=== PATIENT | male | born 1990 | race Hispanic/Latino ===

== ENCOUNTER 2018-10-07 08:28 | Inpatient (IN) | payer OTHER ==
[~2018-10-07] VITALS: Ht 162.6 cm; Wt 95.3 kg
[2018-10-07] MEDS ORDERED: PANTOPRAZOLE 40 MG 10ML VIAL IV NR (09:04)
[2018-10-07] MEDS ORDERED: SODIUM CHLORIDE 0.9% 1000ML 1,000 ML IV STA ×2 (09:04→12:18)
[2018-10-07] MEDS ORDERED: ONDANSETRON HCL INJ 2MG/ML 2ML 2 MG/ML VIAL IV NR (09:04)
[2018-10-07] MEDS ORDERED: MORPHINE SULFATE INJ 4 MG/ML INJ 1ML IV NR (09:15)
[2018-10-07 10:00] LABS: INR 0.84
[2018-10-07 10:01] LABS: PARTIAL THROMBOPLASTIN TIME 31.9 seconds (23.8-35.5)
--- NOTE | 2018-10-07 10:48 | Diagnostic Imaging Report ---
EXAMINATION: CHEST 2 VIEWS INDICATION: Epigastric pain ^ABD/CHEST PAIN ^20181007 ^1015 COMPARISON: None FINDINGS: PA and lateral views TUBES and LINES: None. LUNGS: Low lung volumes. There is no evidence of pneumonia or pulmonary edema. PLEURA: No pleural effusion or pneumothorax. HEART AND MEDIASTINUM: The cardiomediastinal silhouette is unremarkable.. BONES AND SOFT TISSUES: No focal osseous lesions. Soft tissues are unremarkable. UPPER ABDOMEN: No free air under the diaphragm. IMPRESSION: No acute thoracic abnormality. Signed by: Dr. Milla Montes MD on 10/07/2018 10:45 AM
[2018-10-07 10:58] LABS: CLARITY,URINE CLEAR (CLEAR); COLOR,URINE YELLOW (YELLOW); LEUKOCYTE ESTERASE ,URINE NEGATIVE (NEGATIVE); NITRITE,URINE NEGATIVE (NEGATIVE); PROTEIN,URINE DIPSTICK 3+ (NEGATIVE)
[2018-10-07 10:59] LABS: BILIRUBIN,URINE NEGATIVE (NEGATIVE); KETONES,URINE 3+ (NEGATIVE); URINE UROBILINOGEN 0.2 mg/dL (0.2 - 1)
[2018-10-07 11:10] LABS: ALBUMIN 4.2 g/dL (3.5-5.0); ALBUMIN/GLOBULIN RATIO 0.4 (0.8-2.0); ANION GAP 22.6 mmol/L (8-16); CALCIUM 9.8 mg/dL (8.4-10.2); CARBON DIOXIDE 17 mmol/L (22-29); CHLORIDE 89 mmol/L (98-107); POTASSIUM 3.6 mmol/L (3.5-5.1); SODIUM 125 mmol/L (136-145)
[2018-10-07 11:12] LABS: GLUCOSE 377 mg/dL (74-118)
[2018-10-07 11:16] LABS: RBC,URINE 21-50 /HPF (0-5)
[2018-10-07 11:21] LABS: HYALINE CASTS 0-1 (0-1); WBC,URINE (MAN) 0-5 /HPF (0-5)
[2018-10-07 11:25] LABS: BLOOD UREA NITROGEN 11 mg/dL (7-26); BUN/CREATININE RATIO 10 (6-25); CREATININE, SERUM 1.11 mg/dL (0.72-1.25); EST GLOMERULAR FILTRATION RATE > 60 ML/MIN (60-)
[2018-10-07 11:37] LABS: AMYLASE 253 U/L (25-125); LIPASE 633 U/L (8-78)
--- NOTE | 2018-10-07 11:40 | NUR ---
VERBAL REPORT GIVEN TO LINH CARROLL.
--- NOTE | 2018-10-07 12:17 | NUR ---
RT CALLED TO BE NOTIFIED OF ABG.
[2018-10-07] MEDS ORDERED: INSULIN REGULAR, HUMAN 100 UNIT/1 ML 3ML VIAL IV STA (12:18)
[2018-10-07 12:23] LABS: BASOPHILS % 0.3 % (0.0-1.0); EOSINOPHILS % 0.2 % (0.0-6.0); HEMATOCRIT 42.7 % (38.2-49.6); LYMPHOCYTES # (AUTO) 0.7 (1.0-3.2); LYMPHOCYTES % 5.2 % (18.0-39.1); MEAN CORPUSCULAR HEMOGLOBIN 31.6 pg (28-32); MEAN CORPUSCULAR HGB CONC 35.1 g/dL (31-35); MEAN CORPUSCULAR VOLUME 89.9 fL (81-99); MONOCYTES # (AUTO) 0.5 (0.2-0.8); MONOCYTES % 3.9 % (4.4-11.3); NEUTROPHILS # (AUTO) 11.4 (2.1-6.9); NEUTROPHILS % 89.5 % (38.7-80.0); PLATELET COUNT 203 x10e3/uL (140-360); RED BLOOD COUNT 4.75 x10e6/uL (4.3-5.7); RED CELL DISTRIBUTION WIDTH 13.5 % (11.7-14.4)
--- NOTE | 2018-10-07 12:23 | Diagnostic Imaging Report ---
CT Abdomen And Pelvis with Intravenous Contrast INDICATION: ^CHARITO ABD PAIN, FATTY LIVER ^[id number] ^1105 TECHNIQUE: Thin collimation axial images obtained from the diaphragm to the level of the pubic symphysis following the uneventful administration of 100 cc of low osmolar, nonionic intravenous contrast. Dose reduction techniques used: Automated exposure control, adjustment of the mAs and/or kVp according to patient size, standardized low-dose protocol, and/or iterative reconstruction technique. RADIATION DOSE: Total DLP: 798.6 mGy*cm Estimated effective dose: (DLP x 0.015 x size factor) mSv CTDIvol has been reviewed. It is below the limits set by the Radiation Protocol Committee (RPC). COMPARISON: Chest x-ray 1003 hours. ABDOMEN FINDINGS: Lung Bases: Clear. The visualized portions of the mediastinum are normal.. Liver: Decreased attenuation consistent with steatosis. The right lobe measures 19 cm in length. No evidence for mass. Gallbladder: Present and appears normal. No biliary ductal dilatation. Pancreas: There is inflammation surrounding the body and tail. Focal hypodensity in the tail measures approximately 20 mm and contains a punctate calcification. Low attenuating lesion in the superior aspect of the proximal tail measures 9 mm. Phlegmonous fluid collection inferior to the head adjacent to the third portion of the duodenum measures 1.7 x 3.6 cm. No evidence of air. Spleen: Normal in size. No evidence of mass. Adrenal Glands: No evidence for mass. Kidneys: Right: Normal enhancement. Punctate low attenuating lesion in the upper pole is too small to characterize. No hydronephrosis. Left: Normal enhancement. No soft tissue mass. No hydronephrosis. Lymph Nodes: No lymphadenopathy. Aorta: Normal in diameter. No free air. PELVIS FINDINGS: Bowel: Stomach: Normal in caliber with normal wall thickness. Small Bowel: Several fluid distended small bowel loops in the right lower quadrant are suggestive of ileus.. Large Bowel: Normal in caliber with normal wall thickness. Appendix: Normal appendix. Bladder: Normal. Bones: No focal osseous lesions. Soft tissues: Focal subcutaneous thickening in the right inguinal region measures 1.5 cm in largest dimension and has no specific features. IMPRESSION: 1. Acute interstitial pancreatitis. Small focus of hypoattenuation in the proximal tail may represent a component of necrosis. Focus of hypoattenuation in the distal tail with punctate calcification may be the result of necrosis and pseudocyst formation. Loculated fluid collection inferior to the pancreas head may represent a pseudocyst or acute peripancreatic fluid collection. 2. Steatosis and hepatomegaly. 3. Mild small bowel ileus, likely reactive from acute pancreatitis. 4. Soft tissue nodule in the right inguinal region has no specific features by CT. Recommend correlation with physical exam and possible dermatologic consult. Signed by: Dr. Milla Montes MD on 10/07/2018 12:19 PM
[2018-10-07 12:47] LABS: ALKALINE PHOSPHATASE 156 IU/L (40-150); CREATINE KINASE 128 IU/L (30-200)
[2018-10-07] MEDS ORDERED: HYDROMORPHONE 2MG/ML 2 MG/ML ML IV NR (13:15)
[2018-10-07] MEDS ORDERED: DEXTROSE 50% SYRINGE 50 ML IV PRN (13:15)
[2018-10-07] MEDS ORDERED: ONDANSETRON HCL INJ 2MG/ML 2ML 2 MG/ML VIAL IV PRN (13:15)
[2018-10-07] MEDS: SODIUM CHLORIDE 0.9% 1000ML 1,000 ML IV SCH ×2 (13:22→16:50)
--- OUTSIDE RECORDS SUMMARY | 2018-10-07 13:26 | XMS REPORT ---
Author Author [facility] Address Unknown Phone Unavailable Care Team Providers Care Wage Conciliator Name Role Phone Jim VILLA Unavailable Unavailable Problems This patient has no known problems. Allergies, Adverse Reactions, Alerts This patient has no known allergies or adverse reactions. Medications This patient has no known medications. Results Test Description Test Time Test Comments Text Results Atomic Results Result Comments CT ABDOMEN/PELVIS W 2018-10-07 11:50:[address] [address] Patient Name: GRACIA DURON MR #: [id number] : 1990 Age/Sex: 28/M Req #: [id number] Adm Physician: Ordered by: RIP VILLA MD Report #: [id number] Location: ER Room/Bed: Procedure: [id number] CT/CT ABDOMEN/PELVIS W Exam Date: 10/07/18 Exam Time: 1105 REPORT STATUS: Signed CT Abdomen And Pelvis with Intravenous Contrast IN DICATION: CHARITO ABD PAIN, FATTY LIVER [id number] TECHNIQUE: Thin collimation axial images obtained from the diaphragm to the level of the pubic symphysis following the uneventful administration of 100 cc of low osmolar, nonionic intravenous contrast. Dose reduction techniques used: Automated exposure control, adjustment of the mAs and/or kVp according to patient size, standardized low-dose protocol, and/or iterative reconstruction technique. RADIATION DOSE: Total DLP: 798.6 mGy*cm Estimated effective dose: (DLP x 0.015 x size factor) mSv CTDIvol has been reviewed. It is below the limits set by the Radiation Protocol Committee (RPC). COMPARISON: Chest x-ray 1003 hours. ABDOMEN FINDINGS: Lung Bases: Clear. The visualized portions of the mediastinum are normal.. Liver: Decreased attenuation consistent with steatosis. The right lobe measures 19 cm in length. No evidence for mass. Gallbladder: Present and appears normal. No biliary ductal dilatation. Pancreas: There is inflammation surrounding the body and tail. Focal hypodensity in the tail measures approximately 20 mm and contains a punctate calcification. Low attenuating lesion in the superior aspect of the proximal tail measures 9 mm. Phlegmonous fluid collection inferior to the head adjacent to the third portion of the duodenum measures 1.7 x 3.6 cm. No evidence of air. Spleen: Normal in size. No evidence of mass. Adrenal Glands: No evidence for mass. Kidneys: Right: Normal enhancement. Punctate low attenuating lesion in the upper pole is too small to characterize. No hydronephrosis. Left: Normal enhancement. No soft tissue mass. No hydronephrosis. Lymph Nodes: No lymphadenopathy. Aorta: Normal in diameter. No free air. PELVIS FINDINGS: Bowel: Stomach: Normal in caliber with normal wall thickness. Small Bowel: Several fluid distended small bowel loops in the right lower quadrant are suggestive of ileus.. Large Bowel: Normal in caliber with normal wall thickness. Appendix: Normal appendix. Bladder: Normal. Bones: No focal osseous lesions. Soft tissues: Focal subcutaneous thickening in the right inguinal region measures 1.5 cm in largest dimension and has no specific features. IMPRESSION: 1. Acute interstitial pancreatitis. Small focus of hypoattenuation in the proximal tail may represent a component of necrosis. Focus of hypoattenuation in the distal tail with punctate calcification may be the result of necrosis and pseudocyst formation. Loculated fluid collection inferior to the pancreas head may represent a pseudocyst or acute peripancreatic fluid collection. 2. Steatosis and hepatomegaly. 3. Mild small bowel ileus, likely reactive from acute pancreatitis. 4. Soft tissue nodule in the right inguinal region has no specific features by CT. Recommend correlation with physical exam and possi ble dermatologic consult. Signed by: Dr. Augusto Montes MD on 10/07/2018 12:19 PM Dictated By: AUGUSTO MONTES MD Transcribed By: MIGUEL on 10/07/181218 COPY TO: RIP VILLA MD CHEST 2 VIEWS 2018-10-07 10:44:00 [place] [address] Patient Name: GRACIA DURON MR #: [id number] : 1990 Age/Sex: 28/M Req #: [id number] Adm Physician: Ordered by: RIP VILLA MD Report #: [id number] Location: ER Room/Bed: Procedure: [id number] DX/CHEST 2 VIEWS Exam Date: 10/07/18 Exam Time: 1015 REPORT STATUS: Signed EXAMINATION: CHEST 2 VIEWS INDICATION: Epigastric p ain ABD/CHEST PAIN [id number] COMPARISON: None FINDINGS: PA and lateral views TUBES and LINES: None. LUNGS: Low lung volumes. There is no evidence of pneumonia or pulmonary edema. PLEURA: No pleural effusion or pneumothorax. HEART AND MEDIASTINUM: The cardiomediastinal silhouette is unremarkable.. BONES AND SOFT TISSUES: No focal osseous lesions. Soft tissues are unremarkable. UPPER ABDOMEN: No free air under the diaphragm. IMPRESSION: No acute thoracic abnormality. Signed by: Dr. Augusto Montes MD on 10/07/2018 10:45 AM Dictated By: AUGUSTO MONTES MD 1045 Transcribed By: MIGUEL on 10/07/18 1045 COPY TO: RIP VILLA MD
[2018-10-07] MEDS: PIPER-TAZ 3.375 GM 50 ML IV SCH ×2 (13:37→17:51)
[2018-10-07] MEDS ORDERED: ACETAMINOPHEN 1000 MG/100 ML IV NR (13:37)
[2018-10-07 14:32] VITALS: BP 117/70
--- NOTE | 2018-10-07 14:45 | NUR ---
Received patient from ER. Patient A/O X3, even respirations on RA. Skin intact, bowel sounds active, no edema. Right AC 18 gauge IV with NS @ 200 mls/hr. Patient complaint of epigastric pain 03/10. Dilaudid Q3 prn. Tele #[address] Patient is ambulatory voiding in toilet and urinal. at bedside. No signs of distress at this time. Call light in reach, bed lowest position, wheels locked, side rails up x2. Will continue to monitor.
[2018-10-07] MEDS: VANCOMYCIN 1GM/NS 250 ML 250 ML IV SCH ×2 (14:56→21:50)
[2018-10-07 15:02] LABS: ABG HCO3 19 mmol/L (23-28); ABG PCO2 32 mmHg (41-51); ABG PH 7.37 (7.31-7.41); ABG PO2 67 mmHg (80-105)
[2018-10-07 15:31] VITALS: BP 117/70
[2018-10-07 15:40] VITALS: BP 117/70
[2018-10-07] MEDS ORDERED: SODIUM CHLORIDE 0.9% 50ML 50 ML ONE (16:28)
[2018-10-07] MEDS ORDERED: IOPAMIDOL 370 MG/ML 200 ML INFUS..BTL INJ ONE (16:30)
[2018-10-07] MEDS: HYDROMORPHONE 2MG/ML 2 MG/ML ML IV PRN ×2 (16:51→20:30)
[2018-10-07] MEDS: INSULIN LISPRO 100 UNIT/1 ML 3ML VIAL SQ SCH ×2 (16:56→21:50)
[2018-10-07] MEDS ORDERED: PANTOPRAZOLE 40 MG 10ML VIAL IV SCH (17:00)
[2018-10-07 20:00] VITALS: BP 121/66
[2018-10-07] MEDS ORDERED: SODIUM CHLORIDE 0.9% 1000ML 1,000 ML IV ONE (20:15)
[2018-10-07] MEDS: ACETAMINOPHEN 325 MG TAB PO PRN (20:31)
[2018-10-07 20:37] VITALS: BP 110/66
[2018-10-07 22:22] LABS: CREATINE KINASE MB 0.5 ng/mL (0-5.0)
[2018-10-08] VITALS (8 sets, daily range): BP systolic 118–154; BP diastolic 64–107
[2018-10-08] MEDS: SODIUM CHLORIDE 0.9% 1000ML 1,000 ML IV SCH ×6 (00:54→23:15)
[2018-10-08] MEDS: HYDROMORPHONE 2MG/ML 2 MG/ML ML IV PRN ×6 (00:55→20:25)
[2018-10-08] MEDS: PIPER-TAZ 3.375 GM 50 ML IV SCH ×3 (01:23→12:53)
[2018-10-08] MEDS: ACETAMINOPHEN 325 MG TAB PO PRN (05:03)
[2018-10-08 06:04] LABS: BASOPHILS % 0.3 % (0.0-1.0); EOSINOPHILS % 0.2 % (0.0-6.0); HEMATOCRIT 38.2 % (38.2-49.6); HEMOGLOBIN 13.1 g/dL (14.0-18.0); LYMPHOCYTES # (AUTO) 1.6 (1.0-3.2); LYMPHOCYTES % 14.2 % (18.0-39.1); MEAN CORPUSCULAR HEMOGLOBIN 31.3 pg (28-32); MEAN CORPUSCULAR HGB CONC 34.3 g/dL (31-35); MEAN CORPUSCULAR VOLUME 91.4 fL (81-99); MONOCYTES # (AUTO) 0.6 (0.2-0.8); MONOCYTES % 4.9 % (4.4-11.3); NEUTROPHILS # (AUTO) 9.2 (2.1-6.9); NEUTROPHILS % 79.8 % (38.7-80.0); PLATELET COUNT 191 x10e3/uL (140-360); RED BLOOD COUNT 4.18 x10e6/uL (4.3-5.7); RED CELL DISTRIBUTION WIDTH 13.9 % (11.7-14.4)
[2018-10-08 06:20] LABS: CREATINE KINASE 113 IU/L (30-200)
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
[2018-10-08 06:23] LABS: ALANINE AMINOTRANSFERASE 27 IU/L (0-55); ALBUMIN 2.3 g/dL (3.5-5.0); ALBUMIN/GLOBULIN RATIO 0.6 (0.8-2.0); ALKALINE PHOSPHATASE 90 IU/L (40-150); ANION GAP 12.6 mmol/L (8-16); BLOOD UREA NITROGEN 5 mg/dL (7-26); BUN/CREATININE RATIO 6 (6-25); CALCIUM 7.7 mg/dL (8.4-10.2); CARBON DIOXIDE 17 mmol/L (22-29); CHLORIDE 105 mmol/L (98-107); CHOL/HDL RATIO 14.6 (3.9-4.7); CHOLESTEROL 234 MD/DL (0-199); CREATININE, SERUM 0.85 mg/dL (0.72-1.25); EST GLOMERULAR FILTRATION RATE > 60 ML/MIN (60-); GLUCOSE 227 mg/dL (74-118); HDL CHOLESTEROL 16 MG/DL (40-60); POTASSIUM 3.6 mmol/L (3.5-5.1); SODIUM 131 mmol/L (136-145); TRIGLYCERIDES 887 MG/DL (0-149)
[2018-10-08] MEDS ORDERED: SODIUM BICARBONATE 8.4% 50 ML in SODIUM CHLORIDE 0.45% 1,000 ML IV ONE (06:30)
[2018-10-08] MEDS ORDERED: SODIUM CHLORIDE 0.9% 1000ML 1,000 ML IV SCH (06:30)
[2018-10-08] MEDS ORDERED: SODIUM CHLORIDE 0.45% 1,000 ML IV SCH (06:45)
--- NOTE | 2018-10-08 07:15 | NUR ---
Received patient and walking rounds complete. Patient awake at this time, no signs of distress. Call light in reach will continue to monitor.
[2018-10-08] MEDS ORDERED: SODIUM CHLORIDE 0.9% 1000ML 1,000 ML IV ONE ×2 (07:30)
[2018-10-08] MEDS: PANTOPRAZOLE 40 MG 10ML VIAL IV SCH (08:39)
[2018-10-08] MEDS: INSULIN LISPRO 100 UNIT/1 ML 3ML VIAL SQ SCH ×4 (08:43→21:00)
[2018-10-08] MEDS: FENOFIBRATE 145 MG TAB PO SCH (09:00)
[2018-10-08] MEDS ORDERED: SODIUM BICARBONATE 8.4% 100 ML in SODIUM CHLORIDE 0.45% 1,000 ML IV SCH (09:00)
[2018-10-08] MEDS: VANCOMYCIN 1GM/NS 250 ML 250 ML IV SCH ×2 (10:12→22:50)
[2018-10-08] MEDS: SODIUM BICARBONATE 8.4% 100 ML in SODIUM CHLORIDE 0.45% 1,000 ML IV SCH (11:34)
--- NOTE | 2018-10-08 11:34 | NUR ---
New 20 gauge Left AC IV started.
--- NOTE | 2018-10-08 11:35 | NUR ---
Patient A/O X3, even respirations on RA. Skin intact, bowel sounds active, no edema. Right AC 18 gauge IV with NS @ 250 mls/hr. Left AC 20 gauge IV with NS & sodium bicarb @ 50 mls/hr. SCD's in place at this time, and ice packs. Dilaudid for epigastric pain Q3 PRN. Patient is ambulatory, voiding in urinal. Call light in reach, will continue to monitor.
[2018-10-08] MEDS: ACETAMINOPHEN 1000 MG/100 ML IV SCH ×2 (11:52→18:10)
--- NOTE | 2018-10-08 13:58 | NUR ---
Informed Dr. Rucker of previous temperatures. 102.5 @ 1200, and 99.8 @ 1354. Patient refused cooling blanket. Will continue ice packs and IV Tylenol Q6.
[2018-10-08 14:40] LABS: CREATINE KINASE 105 IU/L (30-200)
[2018-10-08] MEDS: ATORVASTATIN 20 MG TAB PO SCH (21:00)
[2018-10-08] MEDS ORDERED: MEROPENEM 1GM 100 ML IV SCH (22:00)
[2018-10-09] VITALS (8 sets, daily range): BP systolic 140–155; BP diastolic 83–96
[2018-10-09] MEDS: ACETAMINOPHEN 1000 MG/100 ML IV PRN ×2 (00:34→11:59)
[2018-10-09] MEDS: HYDROMORPHONE 2MG/ML 2 MG/ML ML IV PRN ×6 (00:34→20:45)
--- NOTE | 2018-10-09 00:46 | Consultation ---
DATE OF CONSULTATION: REASON FOR CONSULTATION: Pancreatitis. HISTORY OF PRESENT ILLNESS: This patient is a very pleasant 28-year-old [place] male. Denies any past medical history, comes in with 1-week history of some abdominal discomfort was getting progressively worse with nausea, abdominal pain, and fever. The patient came to emergency room of pancreatitis and he was admitted. PAST MEDICAL HISTORY: He denies. PAST SURGICAL HISTORY: He denies. ALLERGIES: NKA. SOCIAL HISTORY: There is no smoking, drug abuse, or alcohol abuse. FAMILY HISTORY: Otherwise noncontributory. REVIEW OF SYSTEMS: HEENT: Negative. PULMONARY: Negative. CARDIAC: Negative. : Negative. GI: Nausea, vomiting, abdominal pain, but now is better. CARDIAC: Negative. LABORATORY DATA: His white count is 11.5, hemoglobin of 13. His sodium is 131, potassium 3.6, glucose 227. Liver enzymes within normal limit. Amylase 253, lipase 246. CAT scan of abdomen and pelvis showed acute pancreatitis, may be . PHYSICAL EXAMINATION: GENERAL: He is alert and oriented, does not seem to be in acute distress. VITAL SIGNS: Stable. Currently, afebrile. HEENT: He is not icteric. NECK: Supple. CHEST: Clear. HEART: S1, S2. . ABDOMEN: Soft, diffuse discomfort, and tenderness. IMPRESSION AND PLAN: 1. Pancreatitis. 2. Diabetes mellitus. From Infectious Disease point of view, strict n.p.o., meropenem, we will follow. MD RON Bautista/MODL /[id number]
[2018-10-09] MEDS: SODIUM CHLORIDE 0.9% 1000ML 1,000 ML IV SCH ×6 (04:19→20:44)
[2018-10-09] MEDS ORDERED: MEROPENEM 1GM 100 ML IV SCH (06:00)
[2018-10-09 07:07] LABS: BASOPHILS % 0.4 % (0.0-1.0); EOSINOPHILS # (AUTO) 0.1 (0.0-0.4); EOSINOPHILS % 1.1 % (0.0-6.0); HEMATOCRIT 35.1 % (38.2-49.6); HEMOGLOBIN 11.7 g/dL (14.0-18.0); LYMPHOCYTES # (AUTO) 1.3 (1.0-3.2); LYMPHOCYTES % 15.4 % (18.0-39.1); MEAN CORPUSCULAR HEMOGLOBIN 31.4 pg (28-32); MEAN CORPUSCULAR HGB CONC 33.3 g/dL (31-35); MEAN CORPUSCULAR VOLUME 94.1 fL (81-99); MONOCYTES # (AUTO) 0.4 (0.2-0.8); MONOCYTES % 4.8 % (4.4-11.3); NEUTROPHILS # (AUTO) 6.6 (2.1-6.9); NEUTROPHILS % 77.8 % (38.7-80.0); PLATELET COUNT 143 x10e3/uL (140-360); RED BLOOD COUNT 3.73 x10e6/uL (4.3-5.7); RED CELL DISTRIBUTION WIDTH 14.4 % (11.7-14.4)
[2018-10-09] MEDS: INSULIN LISPRO 100 UNIT/1 ML 3ML VIAL SQ SCH ×4 (07:30→21:00)
[2018-10-09] MEDS: SODIUM BICARBONATE 8.4% 100 ML in SODIUM CHLORIDE 0.45% 1,000 ML IV SCH (07:38)
[2018-10-09 07:49] LABS: ALANINE AMINOTRANSFERASE 18 IU/L (0-55); ALBUMIN 2.1 g/dL (3.5-5.0); ALBUMIN/GLOBULIN RATIO 0.6 (0.8-2.0); ALKALINE PHOSPHATASE 78 IU/L (40-150); AMYLASE 41 U/L (25-125); ANION GAP 12.3 mmol/L (8-16); BLOOD UREA NITROGEN 5 mg/dL (7-26); BUN/CREATININE RATIO 7 (6-25); CALCIUM 7.8 mg/dL (8.4-10.2); CARBON DIOXIDE 21 mmol/L (22-29); CHLORIDE 108 mmol/L (98-107); CREATININE, SERUM 0.71 mg/dL (0.72-1.25); EST GLOMERULAR FILTRATION RATE > 60 ML/MIN (60-); GLUCOSE 154 mg/dL (74-118); LIPASE 60 U/L (8-78); POTASSIUM 3.3 mmol/L (3.5-5.1); SODIUM 138 mmol/L (136-145); TRIGLYCERIDES 347 MG/DL (0-149)
[2018-10-09] MEDS: FENOFIBRATE 145 MG TAB PO SCH (08:25)
[2018-10-09] MEDS: PANTOPRAZOLE 40 MG 10ML VIAL IV SCH (08:37)
[2018-10-09] MEDS: MEROPENEM 1GM 100 ML IV SCH ×2 (08:37→16:15)
[2018-10-09] MEDS: VANCOMYCIN 1GM/NS 250 ML 250 ML IV SCH ×2 (09:28→22:05)
--- NOTE | 2018-10-09 16:14 | Progress Note ---
DATE: 10/09/2018 Medicine Progress Note I am covering for Dr. Sebastian Rucker. SUBJECTIVE: The patient was admitted for underlying pancreatitis. He has significant pain, currently on IV antibiotics, pain control, and n.p.o. The patient is currently doing well with very minimal pain on examination. GI was consulted as well. PHYSICAL EXAMINATION: VITAL SIGNS: Temperature is 99.4, T-max 101, pulse is 114, respiratory rate is 18, blood pressure is 115/92, pulse ox 96% on room air. GENERAL: No acute distress, alert and oriented x3. Cooperative on examination. HEENT: Head is normocephalic, atraumatic. Eyes; pupils are equal, round, and reactive to light bilaterally. Extraocular movements are intact bilaterally. No evidence of erythema or exudates in the posterior pharynx. Has poor dentition. NECK: Supple. Good range of motion throughout. PULMONARY: Clear to auscultation bilaterally. No wheezing, rales, or rhonchi, no crackles appreciated. CARDIOVASCULAR: Positive S1 and S2. No murmurs, rubs, or gallops appreciated. ABDOMEN: Soft. He is tender to palpation in the epigastric region. MUSCULOSKELETAL: Strength is 5/5 throughout. No evidence of any muscle deficits on examination. . NEUROLOGIC: Cranial nerves II through XII grossly intact. No evidence of any neurological deficits on exam. SKIN: Intact. Warm to touch. Good cap refill. PSYCHIATRIC: Normal affect and mood. EXTREMITIES: No edema. Good range of motion throughout. LABORATORY DATA: CBC; white count 8.4, hemoglobin , hematocrit 35, platelets of 143. Chemistry; sodium 138, potassium 3.3, chloride 108, bicarb 21, anion gap is , BUN 5, creatinine is 0.71, calcium is 7.8, albumin 2.1. Urinalysis shows some protein and rbc's. Microbiology; blood culture is negative. Urine culture is negative. CT imaging shows evidence of pancreatic cell necrosis. IMPRESSION: 1. Acute pancreatitis with underlying pancreatic cell necrosis. 2. Type 2 diabetes, uncontrolled. 3. Hypertriglyceridemia. 4. Morbid obesity. PLAN: At this time, he continues to be n.p.o., which we will continue with same plan of care. IV fluids, pain control, IV Merrem. ID was consulted as well as GI. We will follow with the wireless sales consultant's recommendations as well. His labs were reviewed and stable. Continue with aggressive IV fluid hydration as well as monitoring for any worsening symptoms of his pancreatitis. If he continues to have worsening pain, we may need to repeat CT and get General Surgery consultation to rule out any kind of pseudocyst. Otherwise, continue same plan of care. MD KAY Guillen/ERNST /[id number]
--- NOTE | 2018-10-09 19:20 | NUR ---
BEDSIDE SHIFT REPORT PERFORMED WITH Kavita MURRAY RN. RECEIVED PT LAYING SEMI FOWLERS IN BED, AAOX3, RR EVEN AND NON-LABORED, ON RA. LEFT PT LAYING SEMI FOWLERS IN BED, BED IN LOW LOCKED POSITION, SIDE RAILS UPX2, CALL LIGHT AND PHONE WITHIN REACH.
[2018-10-09] MEDS: ATORVASTATIN 20 MG TAB PO SCH (20:07)
--- NOTE | 2018-10-09 21:55 | NUR ---
SPOKE WITH LABORATORY CONCERNING PT VANC TROUGH STILL PENDING. SPOKE WITH ROXANA, WAS INFORMED THAT LAB'S COMPUTER WAS HAVING ISSUES AND THEY ARE RESETTING THE COMPUTERS.
[2018-10-10] VITALS (8 sets, daily range): BP systolic 139–173; BP diastolic 53–108
--- NOTE | 2018-10-10 00:02 | NUR ---
PT REPORTS HEADACHE AT THIS TIME. SPOKE WITH MD Gorge CURTIS. NEW ORDERS RECEIVED.
--- NOTE | 2018-10-10 01:05 | NUR ---
PT REPORTS HE ACCIDENTLY PULLED IV OUT. PT REPORTS HE ROOLED OVER AND FELT IT JUST PULL OUT. PRESSURE AND DRESSING APPLIED TO (R) AC, CATHETER TIP NOTED TO BE INTACT. NEW IV STARTED TO (R) FA 20G. FLUSHES WITHOUT DIFFICULTY, BLOOD RETURN NOTED. Addendum: 10/10/18 at 0219 by Chela Oliveros RN ROOLED = ROLLED
[2018-10-10] MEDS: ACETAMINOPHEN 1000 MG/100 ML IV PRN ×3 (01:07→20:31)
[2018-10-10] MEDS: SODIUM CHLORIDE 0.9% 1000ML 1,000 ML IV SCH ×6 (03:30→18:50)
[2018-10-10 05:39] LABS: BASOPHILS % 0.1 % (0.0-1.0); EOSINOPHILS # (AUTO) 0.2 (0.0-0.4); EOSINOPHILS % 2.4 % (0.0-6.0); HEMATOCRIT 35.4 % (38.2-49.6); HEMOGLOBIN 11.7 g/dL (14.0-18.0); LYMPHOCYTES # (AUTO) 1.3 (1.0-3.2); LYMPHOCYTES % 15.9 % (18.0-39.1); MEAN CORPUSCULAR HEMOGLOBIN 31.1 pg (28-32); MEAN CORPUSCULAR HGB CONC 33.1 g/dL (31-35); MEAN CORPUSCULAR VOLUME 94.1 fL (81-99); MONOCYTES # (AUTO) 0.4 (0.2-0.8); MONOCYTES % 5.1 % (4.4-11.3); NEUTROPHILS # (AUTO) 6.4 (2.1-6.9); NEUTROPHILS % 75.9 % (38.7-80.0); PLATELET COUNT 149 x10e3/uL (140-360); RED BLOOD COUNT 3.76 x10e6/uL (4.3-5.7); RED CELL DISTRIBUTION WIDTH 14.4 % (11.7-14.4)
[2018-10-10] MEDS: SODIUM BICARBONATE 8.4% 100 ML in SODIUM CHLORIDE 0.45% 1,000 ML IV SCH (05:58)
[2018-10-10 06:17] LABS: ANION GAP 14.1 mmol/L (8-16); BLOOD UREA NITROGEN 6 mg/dL (7-26); BUN/CREATININE RATIO 8 (6-25); CALCIUM 8.1 mg/dL (8.4-10.2); CARBON DIOXIDE 18 mmol/L (22-29); CHLORIDE 105 mmol/L (98-107); CREATININE, SERUM 0.73 mg/dL (0.72-1.25); EST GLOMERULAR FILTRATION RATE > 60 ML/MIN (60-); GLUCOSE 170 mg/dL (74-118); POTASSIUM 3.1 mmol/L (3.5-5.1); SODIUM 134 mmol/L (136-145)
[2018-10-10] MEDS: HYDROMORPHONE 2MG/ML 2 MG/ML ML IV PRN ×2 (07:56→15:01)
[2018-10-10] MEDS: FENOFIBRATE 145 MG TAB PO SCH (08:39)
[2018-10-10] MEDS: INSULIN LISPRO 100 UNIT/1 ML 3ML VIAL SQ SCH ×4 (08:53→21:40)
[2018-10-10] MEDS: MEROPENEM 1GM 100 ML IV SCH ×4 (08:53→23:46)
[2018-10-10] MEDS: PANTOPRAZOLE 40 MG 10ML VIAL IV SCH (08:53)
[2018-10-10] MEDS ORDERED: VANCOMYCIN 1GM/NS 250 ML 250 ML IV SCH ×3 (09:00→13:00)
[2018-10-10] MEDS: VANCOMYCIN HCL 1.5 GM in SODIUM CHLORIDE 0.9% 250ML 300 ML IV SCH ×2 (10:59→21:07)
--- NOTE | 2018-10-10 13:31 | NUR ---
PAGED DR. Gorge CURTIS AT THIS TIME FOR DIET ORDERS. AWAITING CALL BACK.
--- NOTE | 2018-10-10 14:04 | NUR ---
SPOKE TO DR. Gorge CURTIS ORDERS RECEIVED FOR CLEAR LIQUID DIET.
[2018-10-10] MEDS ORDERED: POTASSIUM CHLORIDE 20 MEQ TAB CR PO NR (15:45)
--- NOTE | 2018-10-10 15:50 | Progress Note ---
DATE: 10/10/2018 Medicine Progress Note Covering for Dr. Rucker. SUBJECTIVE: The patient is doing much better. He did have some abdominal pain this morning, and stating he is feeling whole lot better now. He is still requiring quite a bit of pain medication. Yesterday, he did have a T-max of 102.5 in the afternoon. He is now currently afebrile. We are going to monitor this very closely. If he develops a fever, we will likely have to get a surgical consultation and repeat CT to rule out any kind of pseudocyst. OBJECTIVE: VITAL SIGNS: Currently temperature is 97.2, pulse 92, respiratory rate is 18, blood pressure 139/87, and pulse ox 99% on room air. GENERAL: Not in acute distress. Alert and oriented x3. Cooperative on examination. HEENT: Head is normocephalic and atraumatic. Eyes, pupils equal, round, reactive to light bilaterally. Extraocular movements intact bilaterally. NECK: Supple. Good range of motion throughout. No evidence of erythema or exudates in the posterior pharynx. Has poor dentition. PULMONARY: Clear to auscultation bilaterally. No wheezes, rhonchi, or crackles appreciated. CARDIOVASCULAR: Positive S1 and S2. No murmurs, rubs, or gallops appreciated. ABDOMEN: Soft, nondistended, and nontender to palpation. Bowel sounds are present. MUSCULOSKELETAL: Strength is 5/5 throughout. No evidence of any muscle deficits on examination. . NEUROLOGIC: Cranial nerves II through XII are grossly intact. No evidence of any neurological deficits on exam. SKIN: Intact. Warm to touch. Good cap refill. PSYCHIATRIC: Normal affect and mood. EXTREMITIES: No edema. Good range of motion throughout. LABORATORY FINDINGS: Show white count of hematocrit 35, platelets of 149. Chemistry; sodium 134, potassium 3.1, chloride 105, bicarb 18, anion gap 14, BUN 6, creatinine is 0.73, glucose is 170, calcium is 8.1. Microbiology all negative. Lipase level was 60. IMPRESSION: 1. Acute pancreatitis with underlying pancreatic necrosis. 2. Type 2 diabetes, uncontrolled. 3. Hypertriglyceridemia. 4. Morbid obesity. PLAN: At this time, he continues to be n.p.o. on IV fluids. He goes on IV vancomycin and Merrem. He has been afebrile now, but yesterday he was febrile. If he develops a fever later today or tomorrow, we will need to get a repeat CT to rule out any kind of pseudocyst. At that time, we will likely get General Surgery consultation as well. At this time, we will continue to monitor closely. GI and ID are following closely. He is on aggressive IV fluid hydration, pain control. Discussed with nurse to talk with GI to see if we could start him on a clear liquid diet. I will also replace his potassium and I will get a.m. labs. MD KAY Guillen/ERNST /[id number]
--- NOTE | 2018-10-10 19:09 | NUR ---
WALKING ROUNDS PERFORMED, RECEIVED PT LAYING SEMI FOWLERS IN BED, AAOX3, RR EVEN AND NON-LABORED, ON RA. NO S/SX OF DISTRESS NOTED. LEFT PT LAYING SEMI FOWLERS IN BED, BED IN LOW LOCKED POSITION, SIDE RAILS UPX2, CALL LIGHT AND PHONE WITHIN REACH.
[2018-10-10] MEDS: ATORVASTATIN 40 MG TAB PO SCH (20:31)
[2018-10-10] MEDS: ZOLPIDEM TARTRATE 5 MG TAB PO PRN (21:07)
[2018-10-11] VITALS (9 sets, daily range): BP systolic 137–150; BP diastolic 75–94
[2018-10-11] MEDS: SODIUM CHLORIDE 0.9% 1000ML 1,000 ML IV SCH ×3 (02:34→16:18)
[2018-10-11] MEDS: SODIUM BICARBONATE 8.4% 100 ML in SODIUM CHLORIDE 0.45% 1,000 ML IV SCH (03:21)
[2018-10-11] MEDS: HYDROMORPHONE 2MG/ML 2 MG/ML ML IV PRN ×3 (03:41→21:02)
[2018-10-11 06:17] LABS: BASOPHILS % 0.4 % (0.0-1.0); EOSINOPHILS # (AUTO) 0.3 (0.0-0.4); EOSINOPHILS % 2.8 % (0.0-6.0); HEMATOCRIT 35.8 % (38.2-49.6); HEMOGLOBIN 12.2 g/dL (14.0-18.0); LYMPHOCYTES # (AUTO) 1.6 (1.0-3.2); LYMPHOCYTES % 17.2 % (18.0-39.1); MEAN CORPUSCULAR HEMOGLOBIN 31.3 pg (28-32); MEAN CORPUSCULAR HGB CONC 34.1 g/dL (31-35); MEAN CORPUSCULAR VOLUME 91.8 fL (81-99); MONOCYTES # (AUTO) 0.6 (0.2-0.8); MONOCYTES % 6.2 % (4.4-11.3); NEUTROPHILS # (AUTO) 6.9 (2.1-6.9); NEUTROPHILS % 72.7 % (38.7-80.0); PLATELET COUNT 181 x10e3/uL (140-360); RED CELL DISTRIBUTION WIDTH 14.1 % (11.7-14.4)
[2018-10-11 07:02] LABS: BLOOD UREA NITROGEN 5 mg/dL (7-26); BUN/CREATININE RATIO 7 (6-25); CALCIUM 8.2 mg/dL (8.4-10.2); CARBON DIOXIDE 18 mmol/L (22-29); CHLORIDE 102 mmol/L (98-107); EST GLOMERULAR FILTRATION RATE > 60 ML/MIN (60-); GLUCOSE 156 mg/dL (74-118); LIPASE 258 U/L (8-78); SODIUM 132 mmol/L (136-145)
--- NOTE | 2018-10-11 07:21 | NUR ---
Rcvd patient in report this am. Patient is asleep in bed at this time. No s/s of distress noted
[2018-10-11] MEDS: PANTOPRAZOLE 40 MG 10ML VIAL IV SCH (08:34)
[2018-10-11] MEDS: MEROPENEM 1GM 100 ML IV SCH ×2 (08:34→16:13)
[2018-10-11] MEDS: INSULIN LISPRO 100 UNIT/1 ML 3ML VIAL SQ SCH ×4 (08:35→21:02)
[2018-10-11] MEDS: FENOFIBRATE 145 MG TAB PO SCH (08:44)
--- NOTE | 2018-10-11 09:23 | NUR ---
Call placed to Dr. parr to inform of low potassium. Awaiting eve huston
[2018-10-11] MEDS: VANCOMYCIN HCL 1.5 GM in SODIUM CHLORIDE 0.9% 250ML 300 ML IV SCH ×2 (09:43→21:14)
[2018-10-11] MEDS ORDERED: POTASSIUM CHLORIDE 20 MEQ TAB CR PO ONE (14:15)
[2018-10-11] MEDS: HYDROCODONE/APAP 5MG-325MG TAB PO PRN (16:13)
--- NOTE | 2018-10-11 16:31 | Progress Note ---
DATE: 10/11/2018 Medicine Progress Note SUBJECTIVE: The patient is doing much better today. Minimal abdominal pain. He is on clear liquid diet. He is tolerating it very well. LAB FINDINGS: Show white count of 9.4, hemoglobin 12, hematocrit 36, platelets of 181. Chemistry; sodium 133, potassium 3.0, chloride 102, bicarb 18, anion gap of 15, BUN is 5, creatinine is 0.7, glucose is 154. PHYSICAL EXAMINATION: VITAL SIGNS: Temperature is 98.9, pulse is 106, respiratory rate is 18, blood pressure 139/94, pulse ox 97% on room air. GENERAL: Not in acute distress, alert and oriented x3, cooperative on exam. HEENT: Head is normocephalic, atraumatic. Eyes; pupils are equal, round, and reactive to light bilaterally. Extraocular movements are intact bilaterally. NECK: Supple. Good range of motion. Throat, no evidence of erythema or exudates in the posterior pharynx. Has poor dentition. PULMONARY: Clear to auscultation bilaterally. No wheezing, no rales, no rhonchi, no crackles are appreciated. CARDIOVASCULAR: Positive S1, S2. No murmurs, rubs, or gallops appreciated. ABDOMEN: Soft, nontender, nondistended on palpation. Bowel sounds are present. MUSCULOSKELETAL: Strength is 5/5 throughout. No evidence of any muscle deficits on examination. No weakness appreciated. NEUROLOGIC: Cranial nerves II through XII grossly intact. No evidence of any neurological deficits on exam. SKIN: Intact. Warm to touch. Good cap refill. PSYCHIATRIC: Normal affect and mood. EXTREMITIES: No edema. Good range of motion throughout. IMPRESSION: 1. Acute pancreatitis with underlying pancreatic necrosis. 2. Type 2 diabetes, uncontrolled. 3. Hypertriglyceridemia. 4. Morbid obesity. PLAN: The patient is on clear liquid diet now and tolerating very well. He is on IV antibiotics, being managed by ID. GI is following as well. He is on IV fluids, pain control. Encourage ambulation. Hopefully by tomorrow, we can advance him to full liquid then to regular and if he tolerates well, he can go home. Potassium was replaced. MD KAY Guillen/MODJim /[id number]
--- NOTE | 2018-10-11 19:46 | NUR ---
Nutrition Screen Note RD Recommendation for Physician: -Rec advancing to ADA/ low fat diet as medically appropriate -RD provided diet education on 10/11. Plan of Care: RD following, monitoring for tolerance and adequacy, diet education Nutrition reason for involvement: RN Consult diet education, NPO/ clear liquid x5 days Primary Diagnose(s): 1. Acute pancreatitis with underlying pancreatic necrosis. 2. Type 2 diabetes, uncontrolled. PMH: Pre-DM, fatty liver, insomnia, PTSD Ht: 64in Wt: 211.5lb BMI: 36.3kg/m2 IBW: 130lb RD Assessment: (10/11) Chart reviewed. Labs and meds reviewed. 28yo M, who was admitted for nausea, vomiting and abdominal pain. Abd/pel CT showed pancreatitis. Newly diagnosed with DM with HbA1c of 10.8%. GI following. Visited pt in the room. Pt tolerated clear liquid without any GI complains. LBM 10/11. Pt denied any chewing or swallowing difficulty. Pt also reported 30lbs INTENTIONAL weight loss in the last 4 months with lifestyle changes. No physical sign of muscle or fat loss upon NFPA. RD provided diet education as consulted. Will continue to monitor and follow. Current Diet: Clear liquid diet Malnutrition Evaluation (10/11) The patient does not meet criteria for a specified degree of malnutrition at this time. Will re-evaluate at follow-up as appropriate. Diet Education Needs Assessment: Diet education indicated, pt was agreeable with plan. Learner(s): pt Time spent: 25mins Barriers: No barriers identified. Cultural/Language Modifications: No cultural/language modifications noted. Pt speaks Liberian. Readiness: Pt eager to learn. Method: Handout, explanation Topics: Carbohydrate counting handouts, Reading the nutrition label, meal planning tips, servings/portion sizes, low fat diet for pancreatitis Understanding/Compliance: Expect good understanding/compliance from pt. Will benefit from reinforcement. All questions have been answered. Nutrition Care Level: low Signed: Neelima Calzada, , RD, LD
[2018-10-11] MEDS: ATORVASTATIN 40 MG TAB PO SCH (20:43)
[2018-10-12] VITALS (8 sets, daily range): BP systolic 115–146; BP diastolic 59–94
[2018-10-12] MEDS: MEROPENEM 1GM 100 ML IV SCH ×3 (00:27→16:08)
--- NOTE | 2018-10-12 00:30 | NUR ---
IS IN THE UNIT .ORDERED DIETARY CONSULTATION.HAS C/O HEAD ACHE.TYLENOL 650 MG PO GIVEN.ABD PAIN VOICED 12/08.BED LOCKED AND IN LOWEST POSITION.PHONE AND CALL LIGHT WITHIN REACH.INSTRUCTED TO CALL FOR ASSISTANCE NEEDED.
[2018-10-12] MEDS: ACETAMINOPHEN 325 MG TAB PO PRN (00:49)
[2018-10-12] MEDS: ZOLPIDEM TARTRATE 5 MG TAB PO PRN (00:49)
[2018-10-12] MEDS: SODIUM CHLORIDE 0.9% 1000ML 1,000 ML IV SCH ×3 (02:50→18:11)
--- NOTE | 2018-10-12 06:00 | NUR ---
Rested well during night.denied pain.stable condition.
[2018-10-12 06:06] LABS: BASOPHILS # (AUTO) 0.1 (0.0-0.1); BASOPHILS % 0.5 % (0.0-1.0); EOSINOPHILS # (AUTO) 0.2 (0.0-0.4); EOSINOPHILS % 1.8 % (0.0-6.0); HEMATOCRIT 34.8 % (38.2-49.6); HEMOGLOBIN 11.9 g/dL (14.0-18.0); LYMPHOCYTES # (AUTO) 1.4 (1.0-3.2); LYMPHOCYTES % 15.2 % (18.0-39.1); MEAN CORPUSCULAR HEMOGLOBIN 31.1 pg (28-32); MEAN CORPUSCULAR HGB CONC 34.2 g/dL (31-35); MEAN CORPUSCULAR VOLUME 90.9 fL (81-99); MONOCYTES # (AUTO) 0.7 (0.2-0.8); MONOCYTES % 7.4 % (4.4-11.3); NEUTROPHILS % 74.5 % (38.7-80.0); PLATELET COUNT 176 x10e3/uL (140-360); RED BLOOD COUNT 3.83 x10e6/uL (4.3-5.7); RED CELL DISTRIBUTION WIDTH 13.8 % (11.7-14.4)
[2018-10-12 06:32] LABS: ANION GAP 13.6 mmol/L (8-16); BLOOD UREA NITROGEN 6 mg/dL (7-26); BUN/CREATININE RATIO 8 (6-25); CALCIUM 8.3 mg/dL (8.4-10.2); CARBON DIOXIDE 22 mmol/L (22-29); CHLORIDE 104 mmol/L (98-107); CREATININE, SERUM 0.75 mg/dL (0.72-1.25); EST GLOMERULAR FILTRATION RATE > 60 ML/MIN (60-); GLUCOSE 166 mg/dL (74-118); POTASSIUM 3.6 mmol/L (3.5-5.1); SODIUM 136 mmol/L (136-145)
[2018-10-12 06:34] LABS: AMYLASE 92 U/L (25-125); LIPASE 225 U/L (8-78)
--- NOTE | 2018-10-12 06:58 | NUR ---
REPORT GIVEN TO THE ONCOMING RN.WALKING ROUNDS DONE.STABLE CONDITION.
--- NOTE | 2018-10-12 07:27 | NUR ---
Rcvd patient in report this am. Patient is asleep in bed at this time. No s/s of distress noted
[2018-10-12] MEDS: FENOFIBRATE 145 MG TAB PO SCH (08:04)
[2018-10-12] MEDS: PANTOPRAZOLE 40 MG 10ML VIAL IV SCH (08:04)
[2018-10-12] MEDS: INSULIN LISPRO 100 UNIT/1 ML 3ML VIAL SQ SCH ×4 (08:37→21:20)
--- NOTE | 2018-10-12 09:00 | NUR ---
Patient tolerated his clear liquids today with no pain or nausea. Advanced diet at this time.
[2018-10-12] MEDS: VANCOMYCIN HCL 1.5 GM in SODIUM CHLORIDE 0.9% 250ML 300 ML IV SCH ×2 (09:34→22:00)
--- NOTE | 2018-10-12 12:01 | NUR ---
Diabetic teaching taught to patient. Patient instructed on how to administer insulin. Patient did well
--- NOTE | 2018-10-12 15:15 | Progress Note ---
DATE: 10/12/2018 Medicine Progress Note SUBJECTIVE: The patient doing well today with no complaints. His abdominal pain is much improved. He is still on clear liquid diet. He wants to advance his diet. His lipase is still slightly elevated, but improving and downtrending. PHYSICAL EXAMINATION: VITAL SIGNS: Temperature 99.2, pulse 99, respirations 20, blood pressure 140/86, pulse ox 96% on room air. GENERAL: Not in acute distress. Alert and oriented x3. Cooperative on examination. HEENT: Head is normocephalic, atraumatic. Eyes, pupils are equal, round, and reactive to light bilaterally. Extraocular movements are intact bilaterally. Throat, no evidence of erythema or exudates in the posterior pharynx. Has poor dentition. NECK: Supple. Good range of motion throughout. PULMONARY: Clear to auscultation bilaterally. No wheezing, no rales, no rhonchi, no crackles are appreciated. CARDIOVASCULAR: Positive S1 and S2. No murmurs, rubs, or gallops appreciated. ABDOMEN: Soft, nondistended, nontender on palpation. Bowel sounds present. MUSCULOSKELETAL: Strength is 5/5 throughout. No evidence of any muscle deficits on examination. No weakness appreciated. NEUROLOGICAL: Cranial nerves II through XII grossly intact. No evidence of any neurological deficits on exam. SKIN: Intact. Warm to touch. Good cap refill. PSYCHIATRIC: Normal affect and mood. EXTREMITIES: No edema. Good range of motion throughout. LABORATORY DATA: Chemistries reviewed and stable. His lipase is 225, though, but downtrending. CBCs are stable. MICROBIOLOGY: All cultures were negative. IMPRESSION: 1. Acute pancreatitis with underlying pancreatic necrosis. 2. Type 2 diabetes, uncontrolled. 3. Hypertriglyceridemia. 4. Morbid obesity. PLAN: He is still on clear liquid diet, hopefully we can advance him to full liquid and then advance him to solids before he goes home, so he can tolerate it well. Continue with IV fluids, pain control. GI is following closely. Electrolytes are stable. MD KAY Guillen/MODJim /[id number]
[2018-10-12] MEDS: INSULIN GLARGINE 100 UNITS/ML VIAL SQ SCH (21:30)
[2018-10-12] MEDS: ATORVASTATIN 40 MG TAB PO SCH (21:30)
[2018-10-12] MEDS: HYDROCODONE/APAP 5MG-325MG TAB PO PRN (22:18)
[2018-10-13] VITALS (8 sets, daily range): BP systolic 129–146; BP diastolic 74–99
[2018-10-13] MEDS: ZOLPIDEM TARTRATE 5 MG TAB PO PRN (00:04)
[2018-10-13] MEDS: SODIUM CHLORIDE 0.9% 1000ML 1,000 ML IV SCH ×3 (00:04→18:08)
[2018-10-13] MEDS: MEROPENEM 1GM 100 ML IV SCH ×3 (00:04→17:37)
--- NOTE | 2018-10-13 00:20 | NUR ---
IS IN THE UNIT.NO NEW ORDERS.TOLERATE THE DIET.
[2018-10-13 06:18] LABS: AMYLASE 54 U/L (25-125); LIPASE 113 U/L (8-78)
--- NOTE | 2018-10-13 06:50 | NUR ---
REPORT GIVEN TO THE ONCOMING RN.WALKING ROUNDS DONE.STABLE CONDITION.
--- NOTE | 2018-10-13 07:05 | NUR ---
Received patient mid fowlers position, side rails upx2, call light within reach. AAOX4 to time, person, place, situation. Respirations even and unlabored.Denies pain. Will continue to monitor.
[2018-10-13] MEDS: PANTOPRAZOLE 40 MG 10ML VIAL IV SCH (08:42)
[2018-10-13] MEDS: INSULIN LISPRO 100 UNIT/1 ML 3ML VIAL SQ SCH ×4 (08:42→21:49)
[2018-10-13] MEDS: FENOFIBRATE 145 MG TAB PO SCH (08:42)
[2018-10-13] MEDS: INSULIN GLARGINE 100 UNITS/ML VIAL SQ SCH ×2 (08:42→21:50)
[2018-10-13] MEDS: VANCOMYCIN HCL 1.5 GM in SODIUM CHLORIDE 0.9% 250ML 300 ML IV SCH ×2 (09:20→21:00)
--- NOTE | 2018-10-13 11:00 | NUR ---
Educated patient on diabetes, insulin administration, and glucose monitoring. Patient voiced understanding and returned demonstration on insulin administration.
--- NOTE | 2018-10-13 14:25 | Progress Note ---
DATE: 10/13/2018 Medicine Progress Note SUBJECTIVE: The patient is doing much better today. He is sitting in a chair. No complaints of nausea or abdominal pain. OBJECTIVE: VITAL SIGNS: Temperature is 97.4, pulse is 90, respiratory rate is 20, blood pressure is 129/74, and pulse ox is 100% on room air. GENERAL: Not in acute distress. Alert and oriented x3. Cooperative on examination. HEENT: Head is normocephalic and atraumatic. Eyes; pupils are equal, round, and reactive to light bilaterally. Extraocular movements are intact bilaterally. Throat, no evidence of erythema or exudates in the posterior pharynx. Has poor dentition. NECK: Supple. Good range of motion. PULMONARY: Clear to auscultation bilaterally. No wheezing, no rales, no rhonchi, no crackles appreciated. CARDIOVASCULAR: Positive S1, S2. No murmurs, rubs, or gallops appreciated. ABDOMEN: Soft, nondistended, and nontender to palpation. Bowel sounds present. MUSCULOSKELETAL: Strength is 5/5 throughout. No evidence of any muscle deficits on examination. No weakness appreciated. NEUROLOGICAL: Cranial nerves II through XII grossly intact. No evidence of any neurological deficits on exam. SKIN: Intact. Warm to touch. Good cap refill. PSYCHIATRIC: Normal affect and mood. EXTREMITIES: No edema. Good range of motion throughout LAB FINDINGS: Show white count 9.4, hemoglobin 11.9, hematocrit is 34.8, and platelets of 176. Labs done for today. IMPRESSION: 1. Acute pancreatitis with underlying pancreatic necrosis. 2. Type 2 diabetes, uncontrolled. 3. Hypertriglyceridemia. 4. Morbid obesity. PLAN: Advance diet to solids now. The patient looks well, no pain, no nausea, no vomiting. Follow with GI recommendations. If the patient is stable by tomorrow and cleared by GI, I will discharge him home. MD KAY Guillen/ERNST /[id number]
--- NOTE | 2018-10-13 19:15 | NUR ---
Report given to oncoming nurse of patient's status. NO s/s of acute distress noted.
[2018-10-13] MEDS: ATORVASTATIN 40 MG TAB PO SCH (21:49)
[2018-10-14] VITALS (7 sets, daily range): BP systolic 123–145; BP diastolic 75–91
[2018-10-14] MEDS: SODIUM CHLORIDE 0.9% 1000ML 1,000 ML IV SCH ×2 (06:14→10:50)
[2018-10-14 06:19] LABS: BASOPHILS % 0.4 % (0.0-1.0); EOSINOPHILS # (AUTO) 0.2 (0.0-0.4); EOSINOPHILS % 2.8 % (0.0-6.0); HEMATOCRIT 33.6 % (38.2-49.6); HEMOGLOBIN 11.5 g/dL (14.0-18.0); LYMPHOCYTES # (AUTO) 1.5 (1.0-3.2); LYMPHOCYTES % 20.8 % (18.0-39.1); MEAN CORPUSCULAR HEMOGLOBIN 30.7 pg (28-32); MEAN CORPUSCULAR HGB CONC 34.2 g/dL (31-35); MEAN CORPUSCULAR VOLUME 89.8 fL (81-99); MONOCYTES # (AUTO) 0.7 (0.2-0.8); MONOCYTES % 9.4 % (4.4-11.3); NEUTROPHILS # (AUTO) 4.7 (2.1-6.9); NEUTROPHILS % 65.6 % (38.7-80.0); PLATELET COUNT 222 x10e3/uL (140-360); RED BLOOD COUNT 3.74 x10e6/uL (4.3-5.7); RED CELL DISTRIBUTION WIDTH 13.5 % (11.7-14.4)
[2018-10-14 06:38] LABS: ANION GAP 14.3 mmol/L (8-16); BLOOD UREA NITROGEN 6 mg/dL (7-26); BUN/CREATININE RATIO 7 (6-25); CALCIUM 8.3 mg/dL (8.4-10.2); CARBON DIOXIDE 27 mmol/L (22-29); CHLORIDE 104 mmol/L (98-107); CREATININE, SERUM 0.82 mg/dL (0.72-1.25); EST GLOMERULAR FILTRATION RATE > 60 ML/MIN (60-); GLUCOSE 164 mg/dL (74-118); POTASSIUM 3.3 mmol/L (3.5-5.1); SODIUM 142 mmol/L (136-145)
[2018-10-14 06:53] LABS: AMYLASE 58 U/L (25-125); LIPASE 114 U/L (8-78)
[2018-10-14] MEDS: INSULIN LISPRO 100 UNIT/1 ML 3ML VIAL SQ SCH ×4 (07:30→22:10)
[2018-10-14] MEDS: MEROPENEM 1GM 100 ML IV SCH ×3 (08:56→15:22)
[2018-10-14] MEDS: PANTOPRAZOLE 40 MG 10ML VIAL IV SCH (08:56)
[2018-10-14] MEDS: FENOFIBRATE 145 MG TAB PO SCH (08:56)
[2018-10-14] MEDS: INSULIN GLARGINE 100 UNITS/ML VIAL SQ SCH ×2 (09:00→22:10)
[2018-10-14] MEDS: VANCOMYCIN HCL 1.5 GM in SODIUM CHLORIDE 0.9% 250ML 300 ML IV SCH ×2 (09:00→21:00)
--- NOTE | 2018-10-14 09:29 | NUR ---
Patient alert and responsive, afebrile, no n/v, tolerated breakfast and OOB ambulating in the room, IV abx running at this time and call light within reach, will monitor.
--- NOTE | 2018-10-14 12:26 | NUR ---
Call to Dr. Gorge Hernadez and cleared patient for discharge and to f/u with him at the office.
[2018-10-14] MEDS ORDERED: POTASSIUM CHLORIDE 20 MEQ TAB CR PO ONE (12:30)
[2018-10-14] MEDS ORDERED: LISINOPRIL2.5 MG PO (12:36)
[2018-10-14] MEDS ORDERED: LIPITOR20 MG PO (12:36)
[2018-10-14] MEDS ORDERED: TRICOR145 MG PO (12:36)
[2018-10-14] MEDS ORDERED: LANTUS 3ML100 UNITS/ SC (12:37)
[2018-10-14] MEDS ORDERED: NOVOLOG100 UNIT/1 SC (12:38)
--- NOTE | 2018-10-14 14:04 | NUR ---
Call to Dr. Galvez's service for clearance to discharge patient and waiting for call back
--- NOTE | 2018-10-14 16:47 | NUR ---
Patient alert and responsive, second call to PA for ID and spoke with him the first time and he was going to call attending and call me back 2 hours ago, second call now and left message regarding clearance to release patient home.
--- NOTE | 2018-10-14 17:15 | NUR ---
Notified attending PA for ID to call him and not discharging patient yet
[2018-10-14] MEDS: ATORVASTATIN 40 MG TAB PO SCH (21:56)
[2018-10-15] VITALS: BP 150/86
--- NOTE | 2018-10-15 | NUR ---
Patient laying in bed with HOB slightly elevated. No sob noted. no acute distress noted.
[2018-10-15 04:00] VITALS: BP 122/80
[2018-10-15] MEDS: INSULIN LISPRO 100 UNIT/1 ML 3ML VIAL SQ SCH (07:30)
[2018-10-15 07:36] VITALS: BP 150/63
[2018-10-15] MEDS: MEROPENEM 1GM 100 ML IV SCH ×2 (08:40)
[2018-10-15] MEDS: SODIUM CHLORIDE 0.9% 1000ML 1,000 ML IV SCH (08:40)
[2018-10-15] MEDS: FENOFIBRATE 145 MG TAB PO SCH (08:40)
[2018-10-15] MEDS: PANTOPRAZOLE 40 MG 10ML VIAL IV SCH (08:40)
[2018-10-15] MEDS: INSULIN GLARGINE 100 UNITS/ML VIAL SQ SCH (08:41)
--- NOTE | 2018-10-15 11:28 | NUR ---
rounds by Dr. Galvez and cleared patient for discharge from ID standpoint.
--- NOTE | 2018-10-15 11:30 | Discharge Summary ---
FINAL DISCHARGE DIAGNOSES: 1. Acute pancreatitis with underlying pancreatic necrosis secondary to hypertriglyceridemia and newly diagnosed type 2 diabetes. 2. Newly diagnosed type 2 diabetes. 3. Hypertriglyceridemia. 4. Morbid obesity. CONSULTANTS: GI. PHYSICAL EXAMINATION: VITAL SIGNS: Temperature is 98.7, pulse is 90, respiratory rate is 20, blood pressure 137/78, pulse ox 97% on room air. LABS: White count 7.1, hemoglobin 11.5, hematocrit 33.6, platelets at 222. Sodium 142, potassium 3.3, replace; chloride 104, bicarb 27, anion gap of 14, BUN 6, creatinine 0.82, glucose 164, calcium is 8.3. Lipase was downtrending to 114. His LFTs are normal. Total bilirubin is 0.8. His LDL was undetectable. His triglyceride level was initially 887, then 347, HDL 16. Albumin 2.1. Troponins are all negative. Urinalysis 3+ glucose, blood, and ketones. MICROBIOLOGY: Blood cultures were negative. Urine cultures were negative. IMAGING STUDIES: Chest x-ray negative. CT abdomen and pelvis with contrast shows acute interstitial pancreatitis. Small focus of hypoattenuation necrosis and pseudocyst formation. Loculated fluid collection. represent a pseudocyst or peripancreatic fluid collection. Mild small bowel ileus. Likely reactive to the acute pancreatitis. Small tissue nodule in the left inguinal region has no specific features. Needs outpatient followup with Dermatology, which I discussed with the patient. HOSPITAL COURSE: This is a 28-year-old male, who came into the ED with complaints of severe abdominal pain, nausea and vomiting, found to have acute pancreatitis on imaging studies. GI was consulted. The patient was n.p.o., pain control, and IV antibiotics. The patient's lipase and LFTs were down trending prior to discharge home and he was doing well and tolerating solid food well. On further investigation, he was found to have an elevated triglycerides as well as an undetectable LDL. His A1c was found to be greater than 11. The patient was then started on insulin while here in the hospital and he was educated accordingly. He is discharged on Lantus twice a day NovoLog at 7 units. The patient was also discharged on a low-dose ESAU inhibitor as well. Per GI, no further workup was needed and he was cleared by GI standpoint for discharge home. On discharge, vitals are stable, labs being stable. The patient is seen and evaluated, examined thoroughly on the day of discharge. No other complaints. The patient verbalized understanding and agreed with plan of care. Follow up as an outpatient with the primary care physician in 1 week and a GI specialist in 2 weeks' time. The patient has been cleared by GI for discharge home. MEDICATIONS: See med reconciliation form. DISPOSITION: Home. CONDITION: Stable. In any event of worsening symptoms, the patient is advised to come back to the ED for further evaluation. Discharge summary took greater than 35 minutes. MD KAY Guillen/MODL /[id number]
--- NOTE | 2018-10-15 12:20 | NUR ---
Patient cleared for discharge today, alert and responsive, tolerated all abx this morning, provided with educaiton information, prescriptions and contacts for f/u appt and IV line removed with dressing applied.
--- NOTE | 2018-10-16 11:40 | Discharge Summary ---
FINAL DISCHARGE DIAGNOSES: 1. Acute pancreatitis with underlying pancreatic necrosis secondary to hypertriglyceridemia and newly diagnosed type 2 diabetes. 2. Pancreatic pseudocyst, improved and completed IV antibiotic therapy per Infectious Disease. 3. Newly diagnosed type 2 diabetes. 4. Hypertriglyceridemia. 5. Morbid obesity. CONSULTANTS: GI and Infectious Disease. PHYSICAL EXAMINATION: VITAL SIGNS: Temperature is 98.9, pulse is 80, respiratory rate is 20, blood pressure 150/63, 99% on room air. LABORATORY DATA: Lab findings show white count 7.1, hemoglobin 9.5, hematocrit 33.6, platelets are 222. Coagulations are normal. Chemistries are reviewed and stable. Potassium was 3.3. Creatinine 0.82. MICROBIOLOGY: Blood cultures were negative. Urine cultures were negative. IMAGING STUDIES: Chest x-ray was negative. CT abdomen and pelvis with contrast shows acute interstitial pancreatitis. Shows a small focus of hypoattenuation, necrosis, and pseudocyst formation. Loculated fluid collection seen. HOSPITAL COURSE: This is a 28-year-old male, who came into the ED with complaints of severe abdominal pain, nausea, and vomiting, found to have acute pancreatitis on imaging studies. GI and ID was consulted. The patient was n.p.o. for quite some time, was on pain control and IV antibiotics. The patient was on IV antibiotics due to pseudocyst. He was found to have elevated lipase and LFTs, which downtrended prior to being discharged home. His A1c was greater than 11 in which he was initiated on insulin. The patient then begin initiation of clear liquid diet, advance to diabetic diet which he tolerated well. The patient's hospital course was prolonged and he needed to complete antibiotic therapy per ID recommendations prior to being discharged for his pseudocyst. No further antibiotic therapy was needed on discharge. The patient was cleared for discharge by both GI and ID for discharge home. On the day of discharge, vital signs were stable, labs were stable. The patient was seen and evaluated, examined thoroughly on the day of discharge, no other complaints. The patient verbalized understanding and agreed with plan of care, to follow up as an outpatient with the primary care physician in 1 week for diabetic followup. He is also advised to follow up with GI in 2 weeks' time. MEDICATIONS: See med reconciliation form. DISPOSITION: Home. CONDITION: Stable. DIET: Diabetic. In any event of worsening symptoms, the patient is advised to come back to the ED for further evaluation. Discharge summary took greater than 35 minutes. MD KAY Guillen/ERNST /[id number]
== END 2018-10-15 12:19 | disposition home or self-care (01) | DRG 871 ==
LOC: ER 08:28 → ERHOLD 13:23 → MED/SURG 14:28
PROVIDERS: ADMIT Internal Medicine; ATTEND Internal Medicine
DX: A41.9 Sepsis, unspecified organism (principal); K85.92 Acute pancreatitis with infected necrosis, unspecified; E87.2 Acidosis; E87.1 Hypo-osmolality and hyponatremia; K56.7 Ileus, unspecified; K52.9 Noninfective gastroenteritis and colitis, unspecified; E11.9 Type 2 diabetes mellitus without complications; E66.01 Morbid (severe) obesity due to excess calories; Z68.36 Body mass index [BMI] 36.0-36.9, adult; E78.1 Pure hyperglyceridemia; K76.0 Fatty (change of) liver, not elsewhere classified
CPT/HCPCS: 36415; 36600; 71046; 74177; 80048; 80053; 80061; 80202; 81001; 82150; 82550; 82553; 82805; 82948; 83036; 83690; 83735; 84478; 84484; 85025; 85610; 85730; 87040; 87086; 93005; 99284; J1815; J2270; J2405; J2543; J3370; J7030; J7050; Q9967